=== PATIENT | male | born 1970 | race African-American/Black ===

== ENCOUNTER 2023-11-26 13:48 | Emergency (ER) | payer SELFPAY ==
[~2023-11-26] VITALS: Ht 172.7 cm; Wt 95.0 kg
[2023-11-26 13:51] VITALS: O2SAT 98
[2023-11-26] MEDS ORDERED: KETOROLAC 15MG/ML VIAL IM ONE (14:15)
[2023-11-26 15:15] VITALS: BP 126/71; PULSE 68; RESP 16; TEMP 36.89184; O2SAT 98
== END 2023-11-26 15:25 | disposition home or self-care (01) ==
LOC: ER 13:48
DX: S89.92XA Unspecified injury of left lower leg, initial encounter (principal); I10 Essential (primary) hypertension; W18.30XA Fall on same level, unspecified, initial encounter; Y93.89 Activity, other specified; Y92.89 Other specified places as the place of occurrence of the external cause; Y99.8 Other external cause status
CPT/HCPCS: 99283; 29505; 73562; J1885

== ENCOUNTER 2024-08-25 23:54 | Emergency (ER) | payer MEDICAID ==
[~2024-08-25] VITALS: Ht 188 cm; Wt 118.0 kg
[2024-08-26 00:01] VITALS: O2SAT 99
[2024-08-26 01:12] LABS: BASOPHILS % 1.3 % (0.0-2.0); EOSINOPHILS % 1.1 % (0.0-5.0); HEMATOCRIT. 39.8 % (42.0-52.0); HEMOGLOBIN. 13.1 g/dL (14.0-18.0); LYMPHOCYTES % 36.1 % (20.0-50.0); MEAN CORPUSCULAR HEMOGLOBIN 30.1 pg (28.0-32.0); MEAN CORPUSCULAR HGB CONC 32.9 g/dL (31.0-37.0); MEAN CORPUSCULAR VOLUME 91.5 fL (80.0-94.0); MEAN PLATELET VOLUME 8.6 fl (7.4-10.4); MONOCYTES % 6.3 % (2.0-8.0); NEUTROPHILS % 55.2 % (40.0-76.0); PLATELET 206 x1000/uL (130-400); RED BLOOD CELL COUNT 4.35 mill/uL (4.7-6.1); RED CELL DISTRIBUTION WIDTH 14.4 % (11.6-14.6); WHITE BLOOD COUNT 5.9 x1000/uL (4.5-11.0)
[2024-08-26 01:27] LABS: CHLORIDE 106 mEq/L (98-107); POTASSIUM 4.2 mEq/L (3.5-5.1); SODIUM 140 mEq/L (136-145)
[2024-08-26 01:28] LABS: CALCIUM 8.7 mg/dL (8.7-10.4); CARBON DIOXIDE 26 mEq/L (21-32)
[2024-08-26 01:33] LABS: CREATININE 1.2 mg/dL (0.6-1.3); GLUCOSE 122 mg/dL (70-105); UREA NITROGEN BLOOD 12 mg/dL (9-23)
[2024-08-26 01:48] LABS: TROPONIN I HIGH SENSITIVITY < 4 ng/L (3.0-53)
[2024-08-26 02:11] VITALS: TEMP 36.4
[2024-08-26] MEDS ORDERED: IOHEXOL-350 100 ML BOTTLE ONE (03:43)
[2024-08-26 07:02] VITALS: BP 123/59; PULSE 72; RESP 12; O2SAT 100
== END 2024-08-26 07:27 | disposition home or self-care (01) ==
LOC: ER 23:54
DX: R06.02 Shortness of breath (principal); F12.10 Cannabis abuse, uncomplicated; I10 Essential (primary) hypertension; Z00.00 Encounter for general adult medical examination without abnormal findings; Z79.899 Other long term (current) drug therapy
CPT/HCPCS: 99285; 80048; 83880; 85025; 85379; 84484; 36415; 71045; 71275; 93970; 93005; Q9967; Z7610 ×2; A4606

== ENCOUNTER 2025-01-24 17:45 | Emergency (ER) | payer MEDICAID ==
[~2025-01-24] VITALS: Ht 185.4 cm; Wt 104.0 kg
[2025-01-24 17:48] VITALS: O2SAT 98
[2025-01-24 19:37] VITALS: TEMP 36.6
[2025-01-24] MEDS: HYDROCODONE/ACETAMINOPHEN 10/325MG TABLET PO ONE (19:39)
[2025-01-24] MEDS: ONDANSETRON 4MG ODT PO ONE (19:40)
[2025-01-24] MEDS ORDERED: IBUP-2030 MT (20:17)
[2025-01-24 21:01] VITALS: BP 103/49; PULSE 78; RESP 14; O2SAT 95
== END 2025-01-24 21:03 | disposition home or self-care (01) ==
LOC: ER 17:45
DX: S00.83XA Contusion of other part of head, initial encounter (principal); S60.221A Contusion of right hand, initial encounter; S60.222A Contusion of left hand, initial encounter; I10 Essential (primary) hypertension; Y04.0XXA Assault by unarmed brawl or fight, initial encounter; Y93.89 Activity, other specified; Y92.89 Other specified places as the place of occurrence of the external cause; Y99.8 Other external cause status
CPT/HCPCS: 99284; 70450; 73130; Q0162; A4606